=== PATIENT | female | born 1950 | race Caucasian/White ===

== ENCOUNTER 2016-11-21 22:27 | Inpatient (IN) | payer OTHER ==
[~2016-11-21] VITALS: Ht 157.5 cm; Wt 46.9 kg
[2016-11-21 11:30] VITALS: BP 138/77; PULSE 69; RESP 18
--- NOTE | 2016-11-22 01:59 | HP ---
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 The current time she is afebrile. Lactate was 1.8. Will obtain an MRI of the left wrist and hand. Will start the patient on vancomycin at this time as there is suspicion for ostium myelitis. Will also obtain a left upper extremity ultrasound secondary to swelling to rule out any underlying DVT. She her sensation is intact to though there is swelling of her wrist and fingers is limiting her range of motion. Will obtain an orthopedic consult. Will also consult ID if indicated. Will obtain wound cultures if possible from the left hand drainage site the right now appears to be dry will consult wound care. Will obtain blood culture. Toradol IV for pain control. #2 DVT GI prophylaxis: SCDs, acid cara Treatment strategy will be implemented as per the clinical course Problems: HPI/ROS Admit Date/Time Admit Date/Time Nov 21, 2016 at 22:37 Hx of Present Illness Chief complaint: Left wrist swelling This is a 56 year female who presented to [facility] for left wrist swelling. She stated that she broke her left wrist many years ago and at that time was advised to have surgery. However the patient never had surgery. She has a chronic deformity of the left wrist. She stated that for the last 6 weeks she has been having left wrist pain and has noticed swelling. They have been gradually worsening her symptoms and they have got worse now over the past 3 days. She reports redness and swelling of the left wrist. As well as pain the pain radiates up into her arm. She denies any trauma or injury. She did state that at the palmar surface she had some drainage which has since stopped. She denies any fevers or chills. Denies any nausea vomiting. Patient was subsequently transferred to [facility] as her insurance was capitated over here. Allergies: Morphine medications: None ROS Const: As per HPI Eyes : No pain discharge or redness or change in visual acuity ENT: No pain, sore throat, congestion, congestion, dysphagia or discharge Respiratory: No shortness of breath, cough, sputum, wheezing, or pleuritic pain Cardiovascular: No chest pain, palpitation, PND, or edema GI : no change in appetite, abdominal pain, nausea, vomiting, diarrhea, constipation, or change in the color his stool Genitourinary: No dysuria, hematuria, flank pain , discharge or CVA tenderness Musculoskeletal: As per HPI Skin: No rash, bruising or hives Neuro: No headache, dizziness, syncope, seizure, focal weakness Endocrine: No polyuria, polydipsia, temperature intolerance Psych: No hallucination, depression, anxiety or suicidal ideation PMH/Family/Social Past Medical History SBO secondary to complication IUD Past Surgical History Small bowel surgery secondary to SBO from IUD complication Family History Significant Family History: cancer (Lung cancer: Father) Social History Smoking Status: Former smoker (Half pack per day 40 years, she quit 5 years ago) Drug Use: marijuana Exam/Review of Systems Vital Signs Vitals Vital Signs Date Time Temp Pulse Resp B/P Pulse Ox O2 Delivery O2 Flow Rate FiO2 11/21/16 11:30 98.1 69 18 138/77 98 Room Air Exam Exam General: Patient is well-developed well-nourished The patient is alert oriented -3 lying comfortably in bed. HEENT: Atraumatic, normocephalic. The pupils are equal, round and reactive. Extraocular motor are intact Neck: Supple with full range of motion. No rigidity or meningismus Chest: Nontender Lungs: Clear to auscultation bilaterally no crackles rales or wheezing Heart: Normal S1-S2, Regular rhythm and rate. No murmur, S3, or S4 Abdomen: Soft , nontender, nondistended , bowel sounds are present. No guarding no rebound tenderness , No masses or organomegaly. No costovertebral temporal angle mass Extremities: Wrist/arm visible deformity noted. Swelling of the left hand and wrist. Of the left hand and wrist to touch Neurologic: Normal mental status, speech normal, cranial nerves II through XII are intact, motor and sensory are intact, no focal weakness Skin: Swelling of the left hand and wrist as well as fingers. No redness or cyanosis noted. Normal sensation. Dried blood noted at the palmar surface of the hand. Tenderness palpation Additional Comments X-ray of the left wrist: Diffuse bone demineralization. Destruction or erosive changes and fragmentation of the distal radius, distal ulna and carpal bones. The lunate may be slightly dorsally subluxed. Periosteal reaction along the distal aspects of the radius and ulna. Soft tissue swelling around the distal forearm and wrist. Moderate dorsal hand soft tissue swelling. 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 Medications Medications Current Medications Ondansetron HCl (Zofran Inj) 4 mg Q6H PRN IV NAUSEA AND/OR VOMITING; Start at 02:00; Status UNV Acetaminophen (Tylenol Tab) 650 mg Q6H PRN PO PAIN LEVEL 1-3 OR FEVER; Start at 02:00; Status UNV Docusate Sodium (Colace) 100 mg Q12H PRN PO CONSTIPATION; Start 11/22/16 at 02: 00; Status UNV Bisacodyl (Dulcolax) 5 mg DAILY PRN PO CONSTIPATION; Start 11/22/16 at 02:00; Status UNV Famotidine (Pepcid) 20 mg Q12 PO ; Start 11/22/16 at 09:00; Status UNV Ketorolac Tromethamine (Toradol) 30 mg Q6H IV ; Start 11/22/16 at 02:00; Stop at 01:59; Status UNV YI CARDONA Nov 22, 2016 01:59
[2016-11-22] MEDS ORDERED: VANCOMYCIN IV PER PHARMACY XX SCH (02:00)
[2016-11-22] MEDS ORDERED: ONDANSETRON 4 MG INJ IV PRN (02:00)
[2016-11-22] MEDS ORDERED: ACETAMINOPHEN 325 MG TAB PO PRN (02:00)
[2016-11-22] MEDS ORDERED: NACL 0.9% 3 ML SYG IV SCH (02:00)
[2016-11-22 02:59] VITALS: BP 100/55; RESP 20
[2016-11-22] MEDS ORDERED: VANCOMYCIN 1 GM in NS 250 ML IVPB SCH ×2 (03:00→03:30)
[2016-11-22] MEDS: KETOROLAC 30 MG INJ IV SCH ×4 (03:58→21:36)
[2016-11-22 05:51] LABS: BASOPHILS % 0.3 % (0.0-2.0); EOSINOPHILS # 0.1 10^3/ul (0.0-0.5); EOSINOPHILS % 2.6 % (0.0-7.0); HEMATOCRIT 34.3 % (37.0-47.0); HEMOGLOBIN 11.4 g/dl (12.0-16.0); LYMPHOCYTES # 1.1 10^3/ul (0.8-2.9); LYMPHOCYTES % 36.8 % (15.0-51.0); MEAN CORPUSCULAR HEMOGLOBIN 29.5 pg (29.0-33.0); MEAN CORPUSCULAR HGB CONC 33.2 g/dl (32.0-37.0); MEAN CORPUSCULAR VOLUME 88.9 fl (82.0-101.0); MEAN PLATELET VOLUME 10.6 fl (7.4-10.4); MONOCYTE # 0.4 10^3/ul (0.3-0.9); MONOCYTES % 12.8 % (0.0-11.0); NEUTROPHIL # 1.4 10^3/ul (1.6-7.5); NEUTROPHILS % 47.2 % (39.0-77.0); PLATELET COUNT 123 10^3/UL (140-415); RED BLOOD COUNT 3.86 10^6/ul (4.20-5.40); RED CELL DISTRIBUTION WIDTH 13.8 % (11.5-14.5)
[2016-11-22 06:24] LABS: ALANINE AMINOTRANSFERASE 56 IU/L (13-69); ALBUMIN 2.3 g/dl (3.3-4.9); ALBUMIN/GLOBULIN RATIO 0.51; ALKALINE PHOSPHATASE 207 IU/L (42-121); ANION GAP 5 (8-16); ASPARTATE AMINO TRANSFERASE 75 IU/L (15-46); BLOOD UREA NITROGEN 9 mg/dl (7-20); CALCIUM 8.1 mg/dl (8.4-10.2); CARBON DIOXIDE 27 mmol/L (21-31); CHLORIDE 112 mmol/L (97-110); CREATININE 0.68 mg/dl (0.44-1.00); GLUCOSE 91 mg/dl (70-220); HDL CHOLESTEROL 19 mg/dl (35-98); MAGNESIUM 1.8 mg/dl (1.7-2.5); SODIUM 140 mmol/L (135-144); TOTAL PROTEIN 6.8 g/dl (6.1-8.1); TRIGLYCERIDES 66 mg/dl (0-149)
[2016-11-22 06:29] LABS: CHOLESTEROL < 50 mg/dl (100-200)
[2016-11-22 07:50] VITALS: BP 124/60; RESP 16
[2016-11-22] MEDS: FAMOTIDINE 20 MG TAB PO SCH ×2 (08:12→21:36)
--- NOTE | 2016-11-22 10:18 | RADRPT ---
PROCEDURE: US upper extremity Venous. CLINICAL INDICATION: Left arm edema TECHNIQUE: Multiple sonographic images of the left upper extremity venous system was obtained util izing grayscale, color-flow, compressive sonography and doppler imaging with augmentation. The imag es were reviewed on a PACS workstation. COMPARISON: None. FINDINGS: There is normal compressibility and flow within the left internal jugular vein, subclavian vein, axi llary vein, brachial, basilic, cephalic, radial and ulnar veins. RPTAT: AA IMPRESSION: No sonographic evidence for venous thrombosis. .Tarik Majano MD, MD Date Time Electronically viewed and signed by .Tarik Majano MD, on 11/22/2016 10:18 .S/
--- NOTE | 2016-11-22 13:11 | RADRPT ---
AMENDMENT: 11/22/2016 1:14:07 PM Joey George M.d Please note in addition to the above mentioned findings there is also high-grade likely full-thickne ss tearing of the second and third flexor digitorum profundus tendons at the level of the carpal april luis. PROCEDURE: MRI OF THE LEFT HAND AND WRIST. CLINICAL INDICATION: Left wrist pain, history of fracture 10 years ago, sudden pain and swelling, no trauma TECHNIQUE: Multiple MRI images were obtained and all three planes utilizing multiple sequences. I mages were interpreted on high-resolution PACS system. COMPARISON: None available FINDINGS: There is very extensive osseous destruction, erosion, and marrow infiltration throughout the wrist c ompatible with very extensive osteomyelitis. There is collapse of the distal radial articular surfac e with dorsal angulation (sagittal 22). Overall there is involvement of the distal radius, distal ul na, proximal and distal carpal rows as well as the bases of the second, third, and fourth metacarpal s. Appears to be some sparing of the first and fifth metacarpals. There is extensive surrounding sof t tissue swelling and fluid/phlegmonous change centered at the radiocarpal joint with surrounding ab scess formation at the distal radioulnar joint and throughout the dorsal soft tissues. The triangle fibrocartilage is completely destroyed. There is mild to moderate flexor and extensor tenosynovitis, particularly at the carpal tunnel throu ghout the palm. There is no definite tendon tear identified. There is intrinsic muscle edema that ma y reflect myositis. There is bowing of the flexor retinaculum. IMPRESSION: 1. Findings concerning for very extensive septic arthritis and osteomyelitis of the wrist as above, including extensive erosive changes of the distal radius /distal ulna and involvement of all carpal bones and the bases of the second, third, and fourth metacarpals. There is collapse of the radiocarp al joint with dorsal angulation of the eroded residual distal radius articular surface. 2. Marked surrounding soft tissue swelling, phlegmonous change, and developing abscess formation thr oughout the surrounding soft tissues, greatest dorsally. 3. Edema throughout the musculature of the hand likely reflecting infectious myositis in this scenar io. 4. Flexor tenosynovitis, most prominent at the carpal tunnel and palm with bowing of the flexor reti naculum. Findings discussed with Dr. Mendez covering for Anselmo Salazar at 11/22/2016 1:05:15 PM RPTAT: UU .Joey George MD, Date Time Electronically viewed and signed by .Joey George MD, on 11/22/2016 13:13 .K/
--- NOTE | 2016-11-22 13:13 | PN ---
Date/Time of Note Date/Time of Note DATE: 11/22/16 TIME: 13:07 Assessment/Plan VTE Prophylaxis VTE Prophylaxis Intervention: SCD's Lines/Catheters IV Catheter Type (from Nrs): Saline Lock Assessment/Plan Assessment/Plan 1. Left wrist/hand swelling, on antibiotics, check uric acid, follow up with MRI ordered last night 2. H/o Left wrist fracture in the past Subjective 24 Hr Interval Summary Free Text/Dictation much less swelling and redness today. afebrile Exam/Review of Systems Vital Signs Vitals Vital Signs Date Time Temp Pulse Resp B/P Pulse Ox O2 Delivery O2 Flow Rate FiO2 11/22/16 07:50 98.2 69 16 124/60 95 11/21/16 11:30 Room Air Intake and Output 11/21/16 11/21/16 11/22/16 15:00 23:00 07:00 Intake Total 730 ml Balance 730 ml Exam Constitutional: alert, oriented, well developed Psych: nl mood/affect, no complaints Head: atraumatic, normocephalic Eyes: EOMI, PERRL, nl conjunctiva, nl lids, nl sclera ENMT: nl external ears & nose, nl lips & teeth, nl nasal mucosa & septum Neck: non-tender, supple Respiratory: clear to auscultation, normal air movement, No congested cough, No crackles/rales, No diminished breath sounds, No intercostal retraction, No labored breathing, No other, No respirations, No tactile fremitus, No wheezing Cardiovascular: nl pulses, regular rate and rhythm Gastrointestinal: nl liver, spleen, non-tender, soft Extremities: normal pulses, other (left hand/wrist swelling, not much of redness, warm) Neurological: GLOBE TESTER II-XII intact, nl mental status, nl speech, nl strength Results Result Diagram: 11/22/16 0511 11/22/16 0511 Results 24 hrs Laboratory Tests Test 11/22/16 05:10 11/22/16 05:11 Hemoglobin A1c 5.6 White Blood Count 3.0 L Red Blood Count 3.86 L Hemoglobin 11.4 L Hematocrit 34.3 L Mean Corpuscular Volume 88.9 Mean Corpuscular Hemoglobin 29.5 Mean Corpuscular Hemoglobin Concent 33.2 Red Cell Distribution Width 13.8 Platelet Count 123 L Mean Platelet Volume 10.6 H Neutrophils % 47.2 Lymphocytes % 36.8 Monocytes % 12.8 H Eosinophils % 2.6 Basophils % 0.3 Nucleated Red Blood Cells % 0.0 Neutrophils # 1.4 L Lymphocytes # 1.1 Monocytes # 0.4 Eosinophils # 0.1 Basophils # 0.0 Nucleated Red Blood Cells # 0.0 Erythrocyte Sedimentation Rate 31 H Sodium Level 140 Potassium Level 4.0 Chloride Level 112 H Carbon Dioxide Level 27 Anion Gap 5 L Blood Urea Nitrogen 9 Creatinine 0.68 Glucose Level 91 Calcium Level 8.1 L Magnesium Level 1.8 Total Bilirubin 1.0 Direct Bilirubin 0.00 Indirect Bilirubin 1.0 Aspartate Amino Transf (AST/SGOT) 75 H Alanine Aminotransferase (ALT/SGPT) 56 Alkaline Phosphatase 207 H C-Reactive Protein 2.2 H Total Protein 6.8 Albumin 2.3 L Globulin 4.50 H Albumin/Globulin Ratio 0.51 Triglycerides Level 66 Cholesterol Level < 50 L LDL Cholesterol, Calculated HDL Cholesterol 19 L Cholesterol/HDL Ratio Thyroid Stimulating Hormone (TSH) 2.210 Medications Medications Current Medications Ondansetron HCl (Zofran Inj) 4 mg Q6H PRN IV NAUSEA AND/OR VOMITING; Start at 02:00 Acetaminophen (Tylenol Tab) 650 mg Q6H PRN PO PAIN LEVEL 1-3 OR FEVER; Start at 02:00 Docusate Sodium (Colace) 100 mg Q12H PRN PO CONSTIPATION; Start 11/22/16 at 02: 00 Bisacodyl (Dulcolax) 5 mg DAILY PRN PO CONSTIPATION; Start 11/22/16 at 02:00 Famotidine (Pepcid) 20 mg Q12 PO Last administered on 11/22/16 08:12; Admin Dose 20 MG; Start 11/22/16 at 09:00 Ketorolac Tromethamine 30 mg 30 mg Q6H IV Last administered on 11/22/16 08:12 ; Admin Dose 30 MG; Start 11/22/16 at 02:00; Stop 11/23/16 at 01:59 Vancomycin HCl (Vancocin) 100 ml @ 100 mls/hr Q12H IVPB ; Start 11/22/16 at 16: 00 MIS STEWART MD Nov 22, 2016 13:13
--- NOTE | 2016-11-22 13:13 | RADRPT ---
PROCEDURE: MRI OF THE LEFT HAND AND WRIST. CLINICAL INDICATION: Left wrist pain, history of fracture 10 years ago, sudden pain and swelling, no trauma TECHNIQUE: Multiple MRI images were obtained and all three planes utilizing multiple sequences. I mages were interpreted on high-resolution PACS system. COMPARISON: None available FINDINGS: There is very extensive osseous destruction, erosion, and marrow infiltration throughout the wrist c ompatible with very extensive osteomyelitis. There is collapse of the distal radial articular surfac e with dorsal angulation (sagittal 22). Overall there is involvement of the distal radius, distal ul na, proximal and distal carpal rows as well as the bases of the second, third, and fourth metacarpal s. Appears to be some sparing of the first and fifth metacarpals. There is extensive surrounding sof t tissue swelling and fluid/phlegmonous change centered at the radiocarpal joint with surrounding ab scess formation at the distal radioulnar joint and throughout the dorsal soft tissues. The triangle fibrocartilage is completely destroyed. There is mild to moderate flexor and extensor tenosynovitis, particularly at the carpal tunnel throu ghout the palm. There is high-grade, likely full-thickness tearing of the second and third flexor di gitorum profundus tendon at the level of the carpal tunnel (axial 28). There is intrinsic muscle chandler ma that may reflect myositis. There is bowing of the flexor retinaculum. IMPRESSION: 1. Findings concerning for very extensive septic arthritis and osteomyelitis of the wrist as above, including extensive erosive changes of the distal radius /distal ulna and involvement of all carpal bones and the bases of the second, third, and fourth metacarpals. There is collapse of the radiocarp al joint with dorsal angulation of the eroded residual distal radius articular surface. 2. Marked surrounding soft tissue swelling, phlegmonous change, and developing abscess formation thr oughout the surrounding soft tissues, greatest dorsally. 3. Edema throughout the musculature of the hand likely reflecting infectious myositis in this scenar io. 4. High-grade likely full-thickness tears of the second and third flexor digitorum profundus tendons at the level of the carpal tunnel. Flexor tenosynovitis, most prominent at the carpal tunnel and pa lm with bowing of the flexor retinaculum. Findings discussed with Dr. Mendez covering for Anselmo Salazar at 11/22/2016 1:05:15 PM RPTAT: UU .Joey George MD, Date Time Electronically viewed and signed by .Joey George MD, on 11/22/2016 13:13 .K/
[2016-11-22 14:00] VITALS: BP 131/63; RESP 20
[2016-11-22] MEDS: VANCOMYCIN 500MG/NS (PMX) 100 ML IVPB SCH (15:54)
[2016-11-22] MEDS: LEVOFLOXACIN 500 MG TAB PO SCH (17:13)
[2016-11-22 19:55] VITALS: BP 141/71; RESP 16
[2016-11-23] MEDS: HYDROCODONE/APAP (5/325) TAB PO PRN ×2 (00:09→20:57)
--- NOTE | 2016-11-23 00:10 | CONS ---
DATE OF ADMISSION: 11/21/2016 DATE OF CONSULTATION: 11/22/2016 REASON FOR CONSULTATION: Antibiotic management. HISTORY OF PRESENT ILLNESS: Reta Dallas is a 66-year-old female who presented to [facility] with left wrist swelling. She notes that she broke her wrist many years ago and at that time was advised to have surgery, which she did not. She has a deformity of the left wrist. Over the last 6 weeks she has been having left wrist pain and as noted, increased swelling. This has been gradually worsening symptoms, and they have gotten much worse over the last 3 days. She reports redness and swelling of the left wrist, as well as pain, which radiates up into her arm. She denies any trauma or injury. She states that at the palmar surface she had some drainage, which has since stopped. She denies fever or chills. LABORATORY: On admission, her white count is 3.0, H and H 11.4, 34.3, platelet count 123,000. Sed rate was 31. BUN/creatinine 9/0.68. C-reactive protein 2.2. Sed rate was 31, as I noted. C- reactive protein was 2.2. Full imaging studies: Wrist MRI shows findings consistent with extensive septic arthritis and osteomyelitis of the wrist, with extensive erosive changes of the distal radius and distal ulna and involvement of all carpal bones of the base of the 2nd, 3rd and 4th metacarpals. There is collapse of the radiocarpal joint, with dorsal angulation of the eroded residual distal radius articular surface. Marked surrounding soft tissue swelling, phlegmonous change and developing abscess formation throughout the surrounding soft tissue, greatest dorsally. Edema throughout the musculature of the hand, likely reflecting infectious myositis in this scenario. Flexor tenosynovitis, most prominent at the carpal tunnel and palm, with bowing of the flexor retinaculum. MRI of the hand showed the same changes, developing abscess formation throughout the soft tissues, greatest dorsally. Edema throughout the musculature of the hand, likely reflecting infectious myositis in this scenario. High-grade, likely full- thickness tears of the second and 3rd flexor digitorum profundus tendons at the level of the carpal tunnel. Flexure tenosynovitis, most prominent at the carpal tunnel and palm, with bowing of the flexor retinaculum. Patient was seen by , who noted left wrist and hand swelling. Patient was started on vancomycin. PAST MEDICAL HISTORY: Operations as outlined. FAMILY HISTORY: Noncontributory. SOCIAL HISTORY: She does not smoke, drink, or abuse drugs. PAST SURGICAL HISTORY: She had small bowel obstruction secondary to an IUD, and she had small bowel surgery. SOCIAL HISTORY: She is a former smoker, half pack per day for 40 years, quit 5 years ago, and she uses marijuana. ALLERGIES: NONE TO PENICILLIN, SULFA, OR FOODS. MEDICATION: Per chart. REVIEW OF SYSTEMS: As per HPI. PHYSICAL EXAMINATION: GENERAL: Patient is a well-developed, well-nourished female, who is alert, responsive, in no acute distress. VITAL SIGNS: Stable. She is afebrile. SKIN: Without generalized rash. HEENT: Within normal limits. NECK: Supple. Lymph nodes nonpalpable. CHEST: Decreased breath sounds at the bases. HEART: Without murmur or gallop. ABDOMEN: Soft, nontender, without organo-splenomegaly or masses. EXTREMITIES: Without cyanosis, clubbing, or edema. EXTREMITIES: Left wrist is visibly deformed, with swelling of left hand and wrist. RECTAL: Deferred. GENITAL: Deferred. NEUROLOGIC: No focal neurological abnormality. IMPRESSION AND PLAN: Patient will require 6 weeks of IV antibiotic therapy, but I think that she needs a hand surgeon to debride the wrist and hand, and that would be of some importance. We could add Levaquin to the regimen. I will dictate my findings to the hospitalist. Dictated By: Nestor Brock MD JD/jarvis/dominic /Document#: [id number]
[2016-11-23 02:20] VITALS: BP 111/56; RESP 16
[2016-11-23] MEDS: ZOLPIDEM 5 MG TAB PO PRN (02:20)
[2016-11-23] MEDS: VANCOMYCIN 500MG/NS (PMX) 100 ML IVPB SCH ×2 (04:42→16:00)
[2016-11-23] MEDS: LEVOFLOXACIN 500 MG TAB PO SCH (04:47)
[2016-11-23 08:19] VITALS: BP 143/65; RESP 18
[2016-11-23] MEDS: FAMOTIDINE 20 MG TAB PO SCH ×2 (09:16→20:57)
--- NOTE | 2016-11-23 14:18 | PN ---
Date/Time of Note Date/Time of Note DATE: 11/23/16 TIME: 14:14 Assessment/Plan VTE Prophylaxis VTE Prophylaxis Intervention: SCD's Lines/Catheters IV Catheter Type (from Nrsg): Saline Lock Assessment/Plan Assessment/Plan 1. Left wrist/hand septic arthritis with osteoarthritis, antibiotics for 6 weeks , ortho consult 2. H/o Left wrist fracture in the past Subjective 24 Hr Interval Summary Free Text/Dictation less pain and swelling on left wrist/hand Exam/Review of Systems Vital Signs Vitals Vital Signs Date Time Temp Pulse Resp B/P Pulse Ox O2 Delivery O2 Flow Rate FiO2 11/23/16 08:19 97.8 76 18 143/65 98 11/21/16 11:30 Room Air Intake and Output 11/22/16 11/22/16 11/23/16 15:00 23:00 07:00 Intake Total 1520 ml 500 ml Balance 1520 ml 500 ml Exam Constitutional: alert, oriented, well developed Psych: nl mood/affect, no complaints Head: atraumatic, normocephalic Eyes: EOMI, PERRL, nl conjunctiva, nl lids, nl sclera ENMT: mucosa pink and moist, nl external ears & nose, nl lips & teeth, nl nasal mucosa & septum Neck: non-tender, supple Respiratory: clear to auscultation, normal air movement, No congested cough, No crackles/rales, No diminished breath sounds, No intercostal retraction, No labored breathing, No other, No respirations, No tactile fremitus, No wheezing Cardiovascular: nl pulses, regular rate and rhythm, No S3, No S4, No bruits, No diastolic murmur, No edema, No gallop, No irregular rhythm, No jugular venous distention (JVD), No murmurs/extra sounds, No other, No rub, No systolic murmur Gastrointestinal: nl liver, spleen, non-tender, soft, No ascites, No bowel sounds, No distended, No firm, No hepatomegaly, No mass , No other, No rebound or guarding, No splenomegaly, No surgical scars, No tender Extremities: normal pulses, other (left wrist hand swelling and pain) Neurological: TRANSIT MIXER OPERATOR II-XII intact, nl mental status, nl speech, nl strength Lymph: nl lymph nodes Results Result Diagram: 11/22/1651011/22/16510 Medications Medications Current Medications Ondansetron HCl (Zofran Inj) 4 mg Q6H PRN IV NAUSEA AND/OR VOMITING; Start at 02:00 Acetaminophen (Tylenol Tab) 650 mg Q6H PRN PO PAIN LEVEL 1-3 OR FEVER; Start at 02:00 Docusate Sodium (Colace) 100 mg Q12H PRN PO CONSTIPATION; Start 11/22/16 at 02: 00 Bisacodyl (Dulcolax) 5 mg DAILY PRN PO CONSTIPATION; Start 11/22/16 at 02:00 Famotidine 20 mg 20 mg Q12 PO Last administered on 11/23/16 09:16; Admin Dose 20 MG; Start 11/22/16 at 09:00 Vancomycin HCl (Vancocin) 100 ml @ 100 mls/hr Q12H IVPB Last administered on 04:42; Admin Dose 100 MLS/HR; Start 11/22/16 at 16:00 Levofloxacin (Levaquin) 500 mg DAILY@06 PO Last administered on 11/23/16 04:47 ; Admin Dose 500 MG; Start 11/22/16 at 17:00 Acetaminophen/ Hydrocodone Bitart (Datil (5/325)) 1 tab Q6H PRN PO pain Last administered on 11/23/16 00:09; Admin Dose 1 TAB; Start 11/23/16 at 00:00 Zolpidem Tartrate (Ambien) 5 mg HS PRN PO INSOMNIA Last administered on 02:20; Admin Dose 5 MG; Start 11/23/16 at 00:00 Miscellaneous Information (*Rx Drug Level Order Reminder*) 1 ONCE ONCE XX ; Start 11/23/16 at 15:00; Stop 11/23/16 at 15:01 MIS STEWART MD Nov 23, 2016 14:17
[2016-11-23 14:26] VITALS: BP 114/69; RESP 18
[2016-11-23] MEDS: VANCOMYCIN 1 GM in NS 250 ML IVPB SCH (16:36)
[2016-11-23 20:15] VITALS: BP 120/65; RESP 19
--- NOTE | 2016-11-23 22:07 | CONS ---
Date/Time of Note Date/Time of Note DATE: 11/23/16 TIME: 22:06 Assessment/Plan Assessment/Plan Chief Complaint/Hosp Course Left wrist cellulitis/OM, poss septic arthritis Plan: Continue Vanco and Levaquin, consider hand surgery evaluation MIRIAM pt/staff Problems: Consultation Date/Type/Reason Admit Date/Time Nov 21, 2016 at 22:37 Initial Consult Date Type of Consultation: ID Exam/Review of Systems Vital Signs Vitals Vital Signs Date Time Temp Pulse Resp B/P Pulse Ox O2 Delivery O2 Flow Rate FiO2 11/23/16 20:15 98.2 90 19 120/65 96 11/21/16 11:30 Room Air Intake and Output 11/22/16 11/22/16 11/23/16 15:00 23:00 07:00 Intake Total 1520 ml 500 ml Balance 1520 ml 500 ml Results Result Diagram: 11/22/16 0511 11/22/16 0511 Results 24 hrs Laboratory Tests Test 11/23/16 15:02 Vancomycin Level Trough 6.6 L Medications Medications Current Medications Ondansetron HCl (Zofran Inj) 4 mg Q6H PRN IV NAUSEA AND/OR VOMITING; Start at 02:00 Acetaminophen (Tylenol Tab) 650 mg Q6H PRN PO PAIN LEVEL 1-3 OR FEVER; Start at 02:00 Docusate Sodium (Colace) 100 mg Q12H PRN PO CONSTIPATION; Start 11/22/16 at 02: 00 Bisacodyl (Dulcolax) 5 mg DAILY PRN PO CONSTIPATION; Start 11/22/16 at 02:00 Famotidine (Pepcid) 20 mg Q12 PO Last administered on 11/23/16 20:57; Admin Dose 20 MG; Start 11/22/16 at 09:00 Levofloxacin (Levaquin) 500 mg DAILY@06 PO Last administered on 11/23/16 04:47 ; Admin Dose 500 MG; Start 11/22/16 at 17:00 Acetaminophen/ Hydrocodone Bitart ([place] (5/325)) 1 tab Q6H PRN PO pain Last administered on 11/23/16 20:57; Admin Dose 1 TAB; Start 11/23/16 at 00:00 Zolpidem Tartrate 5 mg 5 mg HS PRN PO INSOMNIA Last administered on 11/23/16 02:20; Admin Dose 5 MG; Start 11/23/16 at 00:00 Vancomycin HCl (Vancocin) 250 ml @ 125 mls/hr Q12H IVPB Last administered on 16:36; Admin Dose 125 MLS/HR; Start 11/23/16 at 16:30 KONRAD NELSON NP Nov 23, 2016 22:07
[2016-11-24 02:47] VITALS: BP 104/58; RESP 18
[2016-11-24] MEDS: VANCOMYCIN 1 GM in NS 250 ML IVPB SCH ×2 (04:04→17:15)
[2016-11-24] MEDS: BISACODYL (EC) 5 MG TAB PO PRN (04:06)
[2016-11-24] MEDS: LEVOFLOXACIN 500 MG TAB PO SCH (05:34)
[2016-11-24] MEDS: HYDROCODONE/APAP (5/325) TAB PO PRN ×2 (05:34→17:15)
[2016-11-24 06:46] LABS: CREATININE 0.83 mg/dl (0.44-1.00)
[2016-11-24 08:15] VITALS: BP 132/82; RESP 18
[2016-11-24] MEDS: FAMOTIDINE 20 MG TAB PO SCH ×2 (10:08→20:28)
--- NOTE | 2016-11-24 12:57 | CONS ---
Date/Time of Note Date/Time of Note DATE: 11/24/16 TIME: 12:57 Assessment/Plan Assessment/Plan Chief Complaint/Hosp Course No acute changes overnight. Patient is alert and feels better. No fevers Temperature 97.9 [id number] respirations 18 blood pressure 132/82 saturation 96% Antimicrobials: Vancomycin Levaquin Physical examination general: This is a well-nourished well-developed elderly woman who is alert eating lunch and in no distress. Head atraumatic normocephalic. Neck is supple. Chest rise symmetrical, breath sounds clear. Heart: S1-S2. Abdomen soft: Bowel sounds present. Extremities with left arm and wrist decreased erythema Assessment: 1. Left wrist cellulitis osteomyelitis and possible septic arthritis 2. History of left wrist fracture in the past Plan: Patient remains stable, improving on current antimicrobials, consider placement of PICC line, patient will require 6-8 weeks IV antibiotics, patient needs to be seen by hand surgery Problems: Consultation Date/Type/Reason Admit Date/Time Nov 21, 2016 at 22:37 Type of Consultation: ID Exam/Review of Systems Vital Signs Vitals Vital Signs Date Time Temp Pulse Resp B/P Pulse Ox O2 Delivery O2 Flow Rate FiO2 11/24/16 08:15 97.5 78 18 132/82 96 11/21/16 11:30 Room Air Intake and Output 11/23/16 11/23/16 11/24/16 15:00 23:00 07:00 Intake Total 100 ml 1070 ml 800 ml Balance 100 ml 1070 ml 800 ml Results Result Diagram: 11/22/16 0511 11/24/16 0532 Results 24 hrs Laboratory Tests Test 11/23/16 15:02 11/24/16 05:32 Vancomycin Level Trough 6.6 L Blood Urea Nitrogen 10 Creatinine 0.83 Medications Medications Current Medications Ondansetron HCl (Zofran Inj) 4 mg Q6H PRN IV NAUSEA AND/OR VOMITING; Start at 02:00 Acetaminophen (Tylenol Tab) 650 mg Q6H PRN PO PAIN LEVEL 1-3 OR FEVER; Start at 02:00 Docusate Sodium (Colace) 100 mg Q12H PRN PO CONSTIPATION; Start 11/22/16 at 02: 00 Bisacodyl (Dulcolax) 5 mg DAILY PRN PO CONSTIPATION Last administered on 04:06; Admin Dose 5 MG; Start 11/22/16 at 02:00 Famotidine (Pepcid) 20 mg Q12 PO Last administered on 11/24/16 10:08; Admin Dose 20 MG; Start 11/22/16 at 09:00 Levofloxacin (Levaquin) 500 mg DAILY@06 PO Last administered on 11/24/16 05:34 ; Admin Dose 500 MG; Start 11/22/16 at 17:00 Acetaminophen/ Hydrocodone Bitart ([place] (5/325)) 1 tab Q6H PRN PO pain Last administered on 11/24/16 05:34; Admin Dose 1 TAB; Start 11/23/16 at 00:00 Zolpidem Tartrate 5 mg 5 mg HS PRN PO INSOMNIA Last administered on 11/23/16 02:20; Admin Dose 5 MG; Start 11/23/16 at 00:00 Vancomycin HCl (Vancocin) 250 ml @ 125 mls/hr Q12H IVPB Last administered on 04:04; Admin Dose 125 MLS/HR; Start 11/23/16 at 16:30 Miscellaneous Information (*Rx Drug Level Order Reminder*) 1 ONCE ONCE XX ; Start 11/25/16 at 03:30; Stop 11/25/16 at 03:31 KONRAD NELSON NP Nov 24, 2016 12:57
[2016-11-24] MEDS ORDERED: LIDOCAINE 1% (MPF) 5 ML VIAL SC ONE (13:00)
[2016-11-24 14:35] VITALS: BP 131/68; RESP 16
--- NOTE | 2016-11-24 14:45 | PN ---
Date/Time of Note Date/Time of Note DATE: 11/24/16 TIME: 14:38 Assessment/Plan VTE Prophylaxis VTE Prophylaxis Intervention: SCD's Lines/Catheters IV Catheter Type (from Nrsg): [place] Lock Urinary Cath still in place: No Assessment/Plan Assessment/Plan 1. Left wrist/hand septic arthritis with osteoarthritis, antibiotics for 6 weeks , ortho consult, Dr. Barros 2. H/o Left wrist fracture in the past Subjective 24 Hr Interval Summary Free Text/Dictation afebrile Exam/Review of Systems Vital Signs Vitals Vital Signs Date Time Temp Pulse Resp B/P Pulse Ox O2 Delivery O2 Flow Rate FiO2 11/24/16 14:35 97.5 16 131/68 96 11/24/16 08:15 78 11/21/16 11:30 Room Air Intake and Output 11/23/16 11/23/16 11/24/16 15:00 23:00 07:00 Intake Total 100 ml 1070 ml 800 ml Balance 100 ml 1070 ml 800 ml Exam Constitutional: alert, oriented, well developed Psych: nl mood/affect, no complaints Head: atraumatic, normocephalic Eyes: EOMI, nl conjunctiva, nl lids ENMT: nl external ears & nose, nl lips & teeth, nl nasal mucosa & septum Neck: non-tender, supple Respiratory: clear to auscultation, normal air movement, No congested cough, No crackles/rales, No diminished breath sounds, No intercostal retraction, No labored breathing, No other, No respirations, No tactile fremitus, No wheezing Cardiovascular: nl pulses, regular rate and rhythm, No S3, No S4, No bruits, No diastolic murmur, No edema, No gallop, No irregular rhythm, No jugular venous distention (JVD), No murmurs/extra sounds, No other, No rub, No systolic murmur Gastrointestinal: nl liver, spleen, non-tender, soft Extremities: normal pulses, other (right hand /wrist swelling and pain) Neurological: LOAN OPERATIONS MANAGER II-XII intact, nl mental status, nl speech, nl strength Skin: nl turgor Lymph: nl lymph nodes Results Result Diagram: 11/22/16 0511 11/24/16 0532 Results 24 hrs Laboratory Tests Test 11/23/16 15:02 11/24/16 05:32 Vancomycin Level Trough 6.6 L Blood Urea Nitrogen 10 Creatinine 0.83 Medications Medications Current Medications Ondansetron HCl (Zofran Inj) 4 mg Q6H PRN IV NAUSEA AND/OR VOMITING; Start at 02:00 Acetaminophen (Tylenol Tab) 650 mg Q6H PRN PO PAIN LEVEL 1-3 OR FEVER; Start at 02:00 Docusate Sodium (Colace) 100 mg Q12H PRN PO CONSTIPATION; Start 11/22/16 at 02: 00 Bisacodyl (Dulcolax) 5 mg DAILY PRN PO CONSTIPATION Last administered on 04:06; Admin Dose 5 MG; Start 11/22/16 at 02:00 Famotidine (Pepcid) 20 mg Q12 PO Last administered on 11/24/16 10:08; Admin Dose 20 MG; Start 11/22/16 at 09:00 Levofloxacin (Levaquin) 500 mg DAILY@06 PO Last administered on 11/24/16 05:34 ; Admin Dose 500 MG; Start 11/22/16 at 17:00 Acetaminophen/ Hydrocodone Bitart ([place] (5/325)) 1 tab Q6H PRN PO pain Last administered on 11/24/16 05:34; Admin Dose 1 TAB; Start 11/23/16 at 00:00 Zolpidem Tartrate 5 mg 5 mg HS PRN PO INSOMNIA Last administered on 11/23/16 02:20; Admin Dose 5 MG; Start 11/23/16 at 00:00 Vancomycin HCl (Vancocin) 250 ml @ 125 mls/hr Q12H IVPB Last administered on 04:04; Admin Dose 125 MLS/HR; Start 11/23/16 at 16:30 Miscellaneous Information (*Rx Drug Level Order Reminder*) 1 ONCE ONCE XX ; Start 11/25/16 at 03:30; Stop 11/25/16 at 03:31 MIS STEWART MD Nov 24, 2016 14:45
[2016-11-24] MEDS: SOD CHLORIDE 0.9% 100 ML ONE ×2 (16:25→18:00)
--- NOTE | 2016-11-24 16:36 | RADRPT ---
PROCEDURE: XR Chest. CLINICAL INDICATION: Check Line Placement TECHNIQUE: Single frontal view of the chest was obtained COMPARISON: None FINDINGS: There is a right PICC line with tip projecting over the mid superior vena cava. The cardiac silhouette is within normal limits. There are atherosclerotic calcifications of the aort a. The thoracic aorta is tortuous. There is apparent elevation of the right hemidiaphragm. Ill-defin ed opacities at the right lung base may represent atelectasis. A small right pleural effusion cannot be excluded. No pneumothorax or significant left pleural effusion is identified. There is no eviden ce of pulmonary vascular congestion. A cluster of multiple rounded radiodensities measuring up to 1. 7 cm in size located in the right upper quadrant likely represent gallstones. There is mild thoracic dextroscoliosis. IMPRESSION: 1. Right PICC line with tip projecting over the mid superior vena cava. 2. Elevation of the right hemidiaphragm with right basilar atelectasis and probable small right pleu ral effusion. 3. Cholelithiasis. 4. Thoracic aortic calcific atherosclerosis and tortuosity. RPTAT: QQ Physician Nick Date Time Electronically viewed and signed by Physician Nick on 11/24/2016 16:36 /
[2016-11-24] MEDS: DOCUSATE SODIUM 100 MG CAP PO PRN (18:30)
--- NOTE | 2016-11-24 19:39 | RADRPT ---
PROCEDURE: Ultrasound guidance for placement of needle in right upper extremity vein. CLINICAL INDICATION: Venous access. TECHNIQUE: Limited sonography of the right upper extremity was performed. Ultrasound images were recorded and stored in the patient's medical record. COMPARISON: None. FINDINGS: The ultrasound images demonstrate a patent right upper extremity vein. The PICC line was inserted b y the PICC line nurse. IMPRESSION: 1. Ultrasound guidance for a needle placement in a right upper extremity vein. 2. The visualized right upper extremity vein is patent. RPTAT: QQ .Peter Arteaga MD, MD Date Time Electronically viewed and signed by .Peter Arteaga MD, MD on 11/24/2016 19:38 .R/
[2016-11-24 20:17] VITALS: BP 139/74; RESP 18
[2016-11-25] MEDS: HYDROCODONE/APAP (5/325) TAB PO PRN ×2 (00:28→16:57)
[2016-11-25 02:11] VITALS: BP 131/67; RESP 20
[2016-11-25] MEDS: LEVOFLOXACIN 500 MG TAB PO SCH (04:58)
[2016-11-25] MEDS: VANCOMYCIN 1 GM in NS 250 ML IVPB SCH ×2 (04:59→16:58)
[2016-11-25] MEDS: BISACODYL (EC) 5 MG TAB PO PRN (05:03)
[2016-11-25] MEDS: FAMOTIDINE 20 MG TAB PO SCH ×2 (08:44→20:51)
[2016-11-25] MEDS: DOCUSATE SODIUM 100 MG CAP PO PRN (08:44)
[2016-11-25 09:04] VITALS: BP 142/76; RESP 20
--- NOTE | 2016-11-25 12:36 | CONS ---
Date/Time of Note Date/Time of Note DATE: 11/25/16 TIME: 12:33 Assessment/Plan Assessment/Plan Chief Complaint/Hosp Course No acute changes overnight. Patient is alert and feels better. No fevers Antimicrobials: Vancomycin Levaquin Physical examination general: This is a well-nourished well-developed elderly woman who is alert eating lunch and in no distress. Head atraumatic normocephalic. Neck is supple. Chest rise symmetrical, breath sounds clear. Heart: S1-S2. Abdomen soft: Bowel sounds present. Extremities with left arm and wrist decreased erythema Assessment: 1. Left wrist cellulitis osteomyelitis and possible septic arthritis 2. History of left wrist fracture in the past Plan: Patient remains stable, improving on current antimicrobials, PICC line placed, anticipate dc on current abx for 6-8 weeks, f/u with hand surgery Problems: Consultation Date/Type/Reason Admit Date/Time Nov 21, 2016 at 22:37 Type of Consultation: ID Exam/Review of Systems Vital Signs Vitals Vital Signs Date Time Temp Pulse Resp B/P Pulse Ox O2 Delivery O2 Flow Rate FiO2 11/25/16 09:04 98.0 85 20 142/76 97 11/21/16 11:30 Room Air Intake and Output 11/24/16 11/24/16 11/25/16 15:00 23:00 07:00 Intake Total 1910 ml 1050 ml Balance 1910 ml 1050 ml Results Result Diagram: 11/22/16 0511 11/24/16 0532 Results 24 hrs Laboratory Tests Test 11/25/16 03:27 Vancomycin Level Trough 14.2 Medications Medications Current Medications Ondansetron HCl (Zofran Inj) 4 mg Q6H PRN IV NAUSEA AND/OR VOMITING; Start at 02:00 Acetaminophen (Tylenol Tab) 650 mg Q6H PRN PO PAIN LEVEL 1-3 OR FEVER; Start at 02:00 Docusate Sodium (Colace) 100 mg Q12H PRN PO CONSTIPATION Last administered on 08:44; Admin Dose 100 MG; Start 11/22/16 at 02:00 Bisacodyl (Dulcolax) 5 mg DAILY PRN PO CONSTIPATION Last administered on 05:03; Admin Dose 5 MG; Start 9/25/17 at 02:00 Famotidine (Pepcid) 20 mg Q12 PO Last administered on 11/25/16 08:44; Admin Dose 20 MG; Start 11/22/16 at 09:00 Levofloxacin (Levaquin) 500 mg DAILY@06 PO Last administered on 11/25/16 04:58 ; Admin Dose 500 MG; Start 11/22/16 at 17:00 Acetaminophen/ Hydrocodone Bitart ([place] (5/325)) 1 tab Q6H PRN PO pain Last administered on 11/25/16 00:28; Admin Dose 1 TAB; Start 11/23/16 at 00:00 Zolpidem Tartrate 5 mg 5 mg HS PRN PO INSOMNIA Last administered on 11/23/16 02:20; Admin Dose 5 MG; Start 11/23/16 at 00:00 Vancomycin HCl (Vancocin) 250 ml @ 125 mls/hr Q12H IVPB Last administered on 04:59; Admin Dose 125 MLS/HR; Start 11/23/16 at 16:30 IV Flush (NS 10 ml) 10 ml PRN PRN IV IV PROTOCOL; Start 11/24/16 at 18:00 KONRAD NELSON NP Nov 25, 2016 12:36
[2016-11-25 14:00] VITALS: BP 153/72; RESP 18
--- NOTE | 2016-11-25 15:40 | PN ---
Date/Time of Note Date/Time of Note DATE: 11/25/16 TIME: 15:37 Assessment/Plan VTE Prophylaxis VTE Prophylaxis Intervention: SCD's Lines/Catheters IV Catheter Type (from Nrsg): PICC Line Central line still needed: Yes Urinary Cath still in place: No Assessment/Plan Assessment/Plan 1. Left wrist/hand septic arthritis with osteoarthritis, antibiotics for 6-8 weeks, ortho consult with Dr. Barros 2. H/o Left wrist fracture in the past Subjective 24 Hr Interval Summary Free Text/Dictation no event, feels better Exam/Review of Systems Vital Signs Vitals Vital Signs Date Time Temp Pulse Resp B/P Pulse Ox O2 Delivery O2 Flow Rate FiO2 11/25/16 09:04 98.0 85 20 142/76 97 11/21/16 11:30 Room Air Intake and Output 11/24/16 11/24/16 11/25/16 15:00 23:00 07:00 Intake Total 1910 ml 1050 ml Balance 1910 ml 1050 ml Exam Constitutional: alert, oriented, well developed Psych: nl mood/affect, no complaints Head: atraumatic, normocephalic Eyes: EOMI, nl conjunctiva, nl lids ENMT: nl external ears & nose, nl lips & teeth, nl nasal mucosa & septum Neck: non-tender, supple Respiratory: clear to auscultation, normal air movement, No congested cough, No crackles/rales, No diminished breath sounds, No intercostal retraction, No labored breathing, No other, No respirations, No tactile fremitus, No wheezing Cardiovascular: nl pulses, regular rate and rhythm, No S3, No S4, No bruits, No diastolic murmur, No edema, No gallop, No irregular rhythm, No jugular venous distention (JVD), No murmurs/extra sounds, No other, No rub, No systolic murmur Gastrointestinal: nl liver, spleen, non-tender, soft, No ascites, No bowel sounds, No distended, No firm, No hepatomegaly, No mass , No other, No rebound or guarding, No splenomegaly, No surgical scars, No tender Musculoskeletal: other (left hand/wrist swelling) Extremities: normal pulses Neurological: BODY AND FRAME TECHNICIAN II-XII intact, nl mental status, nl speech, nl strength Results Result Diagram: 11/22/16 0511 11/24/16 0532 Results 24 hrs Laboratory Tests Test 11/25/16 03:27 Vancomycin Level Trough 14.2 Medications Medications Current Medications Ondansetron HCl (Zofran Inj) 4 mg Q6H PRN IV NAUSEA AND/OR VOMITING; Start at 02:00 Acetaminophen (Tylenol Tab) 650 mg Q6H PRN PO PAIN LEVEL 1-3 OR FEVER; Start at 02:00 Docusate Sodium (Colace) 100 mg Q12H PRN PO CONSTIPATION Last administered on 08:44; Admin Dose 100 MG; Start 11/22/16 at 02:00 Bisacodyl (Dulcolax) 5 mg DAILY PRN PO CONSTIPATION Last administered on 05:03; Admin Dose 5 MG; Start 11/22/16 at 02:00 Famotidine (Pepcid) 20 mg Q12 PO Last administered on 11/25/16 08:44; Admin Dose 20 MG; Start 11/22/16 at 09:00 Levofloxacin (Levaquin) 500 mg DAILY@06 PO Last administered on 11/25/16 04:58 ; Admin Dose 500 MG; Start 11/22/16 at 17:00 Acetaminophen/ Hydrocodone Bitart ([place] (5/325)) 1 tab Q6H PRN PO pain Last administered on 11/25/16 00:28; Admin Dose 1 TAB; Start 11/23/16 at 00:00 Zolpidem Tartrate 5 mg 5 mg HS PRN PO INSOMNIA Last administered on 11/23/16 02:20; Admin Dose 5 MG; Start 11/23/16 at 00:00 Vancomycin HCl (Vancocin) 250 ml @ 125 mls/hr Q12H IVPB Last administered on 04:59; Admin Dose 125 MLS/HR; Start 11/23/16 at 16:30 IV Flush (NS 10 ml) 10 ml PRN PRN IV IV PROTOCOL; Start 11/24/16 at 18:00 MIS STEWART MD Nov 25, 2016 15:40
--- NOTE | 2016-11-25 17:30 | RADRPT ---
PROCEDURE: XR Wrist. CLINICAL INDICATION: Wrist pain. Clinical concern is for osteomyelitis. TECHNIQUE: AP, lateral and oblique views of the left wrist were performed. COMPARISON: MR 11/22/2016; MR 11/22/2016 FINDINGS: There is an age indeterminate, slightly acute appearing fracture of the distal radius noting dorsal angulation of the distal fragment. There is also marked cortical irregularity at the distal ulna and narrowing of the ulnohumeral joint. 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 There is exte nsive osteopenia cortical irregularity seen throughout the carpal bones. Marked soft tissue swelling is seen about the wrist. IMPRESSION: 1. Extensive cortical destruction, periosteal new bone formation and irregularity seen at the dista l radius and to a greater extent at the distal ulna, compatible with the patient's history of septic arthritis and osteomyelitis. The extent and degree of osteomyelitis is better visualized on the pre vious MRI. 2. Marked soft tissue swelling. RPTAT: VV .Audie Be MD, MD Date Time Electronically viewed and signed by .Audie Be MD, on 11/25/2016 17:30 .d/
[2016-11-25 17:59] VITALS: BP 153/72; RESP 18
--- NOTE | 2016-11-25 19:32 | CONS ---
DATE OF ADMISSION: 11/21/2016 DATE OF CONSULTATION: 11/24/2016 HISTORY OF PRESENT ILLNESS: Patient is a 66-year-old, right- handed female, who was transferred from [facility] because of the painful swelling involving her left wrist. According to the patient, she had sustained a fracture involving her left wrist about 15 years ago, which was treated with cast immobilization. According to the patient, she sustained repeated injury on the left wrist right after removal of cast at that time. Ever since the incident, she has a deformity and swelling involving her left wrist, and she was not able to make a full fist involving her left hand, and her use of her left hand has been limited. Starting about 6 weeks ago, she was developing pain and swelling involving her left wrist, and her family members thought that she may have repeated injury during the sleep. However, this was not clear. As far as she can remember, she did not have any repeated injury. Because of the increasing swelling, she went to [facility] and then was transferred into [facility] because of the insurance arrangement. PHYSICAL EXAMINATION: My examination revealed a considerable deformity and swelling, along with the limit of motion involving her left wrist. She denies any fever or chills during last 6 weeks, and she did not have any fever or leukocytosis throughout her hospitalization in the [facility]. There were some type of open wounds with drainage following her hospitalization at the [facility]. She claims that her pain and swelling got much better following the IV antibiotics. LABORATORY: Plain x-ray has not been done in this facility. The MRI scan reports extensive destructive changes, which is suggestive of extensive infection and osteomyelitis involving distal end of the radius and ulna and radiocarpal articulation and the base of multiple metacarpals. DIAGNOSTIC IMPRESSION: 1. Multiple deformities and chronic changes, which can be the results of poorly-treated repeated fractures involving left wrist joint. 2. Possible infection of the left wrist joint, which has gotten better with IV antibiotics. RECOMMENDATIONS FOR MANAGEMENT: 1. Additional diagnostic studies, including plain x-rays of the left wrist and hand and possibly a WBC scan of the left wrist. 2. Consult Hand Surgery as soon as possible. If a hand surgeon is not available for this patient, then arrangement for her to be on IV antibiotics for 6 weeks, as recommended by Infectious Disease and refer the patient as an outpatient to hand surgeon for further evaluation and proper treatment. Dictated By: In Wendie Barros MD /jarvis/dominic /Document#: [id number]
[2016-11-25 20:00] VITALS: BP 163/71; RESP 20
[2016-11-25] MEDS: ZOLPIDEM 5 MG TAB PO PRN (20:51)
[2016-11-26 02:00] VITALS: BP 119/65; RESP 20
[2016-11-26] MEDS: VANCOMYCIN 1 GM in NS 250 ML IVPB SCH ×2 (04:47→16:02)
[2016-11-26 05:53] LABS: CREATININE 0.67 mg/dl (0.44-1.00)
[2016-11-26] MEDS: LEVOFLOXACIN 500 MG TAB PO SCH (06:22)
[2016-11-26 08:33] VITALS: BP 130/70; RESP 20
[2016-11-26] MEDS: FAMOTIDINE 20 MG TAB PO SCH (09:06)
--- NOTE | 2016-11-26 13:42 | CONS ---
Date/Time of Note Date/Time of Note DATE: 11/26/16 TIME: 13:41 Assessment/Plan Assessment/Plan Chief Complaint/Hosp Course No acute changes overnight. Patient is alert and feels better. No fevers Antimicrobials: Vancomycin Levaquin Physical examination general: This is a well-nourished well-developed elderly woman who is alert eating lunch and in no distress. Head atraumatic normocephalic. Neck is supple. Chest rise symmetrical, breath sounds clear. Heart: S1-S2. Abdomen soft: Bowel sounds present. Extremities with left arm and wrist decreased erythema Assessment: 1. Left wrist cellulitis osteomyelitis and possible septic arthritis 2. History of left wrist fracture in the past Plan: Patient remains stable, L hand/wrist with decreased swelling and erythema , continue on current abx for 6-8 weeks, ortho rec-s noted, f/u with hand surgery DW pt Problems: Consultation Date/Type/Reason Admit Date/Time Nov 21, 2016 at 22:37 Type of Consultation: ID Exam/Review of Systems Vital Signs Vitals Vital Signs Date Time Temp Pulse Resp B/P Pulse Ox O2 Delivery O2 Flow Rate FiO2 11/26/16 08:33 97.8 77 20 130/70 96 Intake and Output 11/25/16 11/25/16 11/26/16 15:00 23:00 07:00 Intake Total 1050 ml 250 ml Balance 1050 ml 250 ml Results Result Diagram: 11/22/16 0511 11/26/16 0455 Results 24 hrs Laboratory Tests Test 11/26/16 04:55 Blood Urea Nitrogen 9 Creatinine 0.67 Medications Medications Current Medications Ondansetron HCl (Zofran Inj) 4 mg Q6H PRN IV NAUSEA AND/OR VOMITING; Start at 02:00 Acetaminophen (Tylenol Tab) 650 mg Q6H PRN PO PAIN LEVEL 1-3 OR FEVER; Start at 02:00 Docusate Sodium (Colace) 100 mg Q12H PRN PO CONSTIPATION Last administered on 08:44; Admin Dose 100 MG; Start 11/22/16 at 02:00 Bisacodyl (Dulcolax) 5 mg DAILY PRN PO CONSTIPATION Last administered on 05:03; Admin Dose 5 MG; Start 11/22/16 at 02:00 Famotidine (Pepcid) 20 mg Q12 PO Last administered on 11/26/16 09:06; Admin Dose 20 MG; Start 11/22/16 at 09:00 Levofloxacin (Levaquin) 500 mg DAILY@06 PO Last administered on 11/26/16 06:22 ; Admin Dose 500 MG; Start 11/22/16 at 17:00 Acetaminophen/ Hydrocodone Bitart ([place] (5/325)) 1 tab Q6H PRN PO pain Last administered on 11/25/16 16:57; Admin Dose 1 TAB; Start 11/23/16 at 00:00 Zolpidem Tartrate 5 mg 5 mg HS PRN PO INSOMNIA Last administered on 11/25/16 20:51; Admin Dose 5 MG; Start 11/23/16 at 00:00 Vancomycin HCl (Vancocin) 250 ml @ 125 mls/hr Q12H IVPB Last administered on 04:47; Admin Dose 125 MLS/HR; Start 11/23/16 at 16:30 IV Flush (NS 10 ml) 10 ml PRN PRN IV IV PROTOCOL; Start 11/24/16 at 18:00 KONRAD NELSON NP Nov 26, 2016 13:42
[2016-11-26 14:00] VITALS: BP 127/65; RESP 20
[2016-11-26] MEDS: HYDROCODONE/APAP (5/325) TAB PO PRN (14:51)
[2016-11-26] MEDS ORDERED: VANC1PLA10 IV (15:59)
[2016-11-26] MEDS ORDERED: LEVO500T72 PO (15:59)
--- NOTE | 2016-11-26 16:08 | DS ---
Date/Time of Note Date/Time of Note DATE: 11/26/16 TIME: 16:01 Discharge Summary Admission/Discharge Info Admit Date/Time Nov 21, 2016 at 22:37 Discharge Date/Time Discharge Diagnosis 1. Left wrist/hand septic arthritis with osteoarthritis, antibiotics for 6-8 weeks, hand surgeon Dr. Hopkins tomorrow 2. H/o Left wrist fracture in the past Patient Condition: Stable Hx of Present Illness This is a 56 year female who presented to [facility] for left wrist swelling. She stated that she broke her left wrist many years ago and at that time was advised to have surgery. However the patient never had surgery. She has a chronic deformity of the left wrist. She stated that for the last 6 weeks she has been having left wrist pain and has noticed swelling. They have been gradually worsening her symptoms and they have got worse now over the past 3 days. She reports redness and swelling of the left wrist. As well as pain the pain radiates up into her arm. She denies any trauma or injury. She did state that at the palmar surface she had some drainage which has since stopped. She denies any fevers or chills. Denies any nausea vomiting. Patient was subsequently transferred to [facility] as her insurance was capitated over here. Hospital Course Patient had significant selling, redness, pain and warmth on left wrist/hand that limited he movement of left wrist. X-ray and MRI indicates septic arthritis , osteoarthritis. Patient is treated with levaquin and vancomycin. The swelling and redness significantly improved. Patient needs to see a hand surgeon that is not available in [facility]. Patient states she has an appointment with a friend hand surgeon tomorrow. And patient insisted on being discharged today. I will continue levaquin and vancomycin for 6 weeks and have her follow up with the hand surgeon. Antibiotics may be extended to 8 week if needed. I ask the staff to get CD copies of x-ray and MRI to the patient so she can bring it to the hand surgeon to review. Home Meds Active Scripts Vancomycin/0.9 % Sod Chloride (Vancomycin 1 G/100Ml-0.9% NaCl) 1 Gm/100 Ml Plast..bag, 1 GM IV Q12H for 42 Days Prov:MIS STEWART MD 11/26/16 Levofloxacin* (Levaquin*) 500 Mg Tablet, 500 MG PO DAILY@06 for 42 Days, TAB Prov:MIS STEWART MD 11/26/16 Follow-up Plan PCP in one week Home health for iv vancomycin Hand surgeon Dr. Hopkins tomorrow Primary Care Provider Not On Staff Doctor Pending Labs Laboratory Tests Test 11/26/16 04:55 Blood Urea Nitrogen 9mg/dl (7-20) Creatinine 0.67mg/dl (0.44-1.00) MIS STEWART MD Nov 26, 2016 16:08
== END 2016-11-26 18:45 | disposition home health service (06) | DRG 540 ==
LOC: PP2 22:37
PROVIDERS: ADMIT Internal Medicine; ATTEND Internal Medicine
PROC: 05H533Z Insertion of Infusion Device into Right Subclavian Vein, Percutaneous Approach (ICD-10-PCS; principal; 2016-11-24)
DX: M86.8X8 Other osteomyelitis, other site (principal); L03.114 Cellulitis of left upper limb; M00.832 Arthritis due to other bacteria, left wrist; M60.001 Infective myositis, unspecified left arm; M19.132 Post-traumatic osteoarthritis, left wrist; Z87.891 Personal history of nicotine dependence; M65.9 Synovitis and tenosynovitis, unspecified
CPT/HCPCS: 36569; 71010; 73218; 73221; 76937; 80053; 80061; 80202; 82565; 83036; 83735; 84145; 84443; 84520; 84560; 85025; 85651; 86140; 87040; 93971; J1885; J3370